=== PATIENT | female | born 2000 | race African-American/Black ===

== ENCOUNTER 2019-10-28 20:43 | Emergency (ER) | payer SELFPAY ==
[~2019-10-28] VITALS: Ht 162.6 cm; Wt 82.0 kg
[2019-10-28 20:50] VITALS: BP 128/86
[2019-10-28] MEDS ORDERED: SODIUM CHLORIDE 0.9% 1000ML BAG (SEPSIS BOLUS) IV ONE (22:30)
[2019-10-28] MEDS ORDERED: ONDANSETRON HCL 4MG/2ML INJ IV ONE (22:30)
[2019-10-28] MEDS ORDERED: MORPHINE SULFATE 4 MG/ML CPJ (NOT FOR IM USE) IV ONE (22:30)
== END 2019-10-29 00:56 | disposition left against medical advice (07) ==
LOC: ER 20:43 → CANBEDREQ 10-29 01:19
DX: M79.18 Myalgia, other site (principal); Z88.0 Allergy status to penicillin; D57.1 Sickle-cell disease without crisis
CPT/HCPCS: 93005; 99283; J7030